=== PATIENT | male | born 2000 ===

== ENCOUNTER 2022-03-01 16:06 | Emergency (ER) | payer OTHER ==
[~2022-03-01] VITALS: Ht 185.4 cm; Wt 68.2 kg
[2022-03-01 17:55] VITALS: BP 120/78
== END 2022-03-01 18:19 ==
LOC: EMS 16:06 → EDSEX 16:06 → EMS 18:19
DX: S93.402A Sprain of unspecified ligament of left ankle, initial encounter (principal); J45.909 Unspecified asthma, uncomplicated; X50.1XXA Overexertion from prolonged static or awkward postures, initial encounter; Y93.89 Activity, other specified; Y92.89 Other specified places as the place of occurrence of the external cause; Y99.8 Other external cause status
CPT/HCPCS: 99283